=== PATIENT | female | born 1995 | race Caucasian/White ===

== ENCOUNTER 2018-12-20 02:58 | Emergency (ER) | payer OTHER ==
[~2018-12-20] VITALS: Ht 154.9 cm; Wt 81.7 kg
== END 2018-12-20 06:27 | disposition home or self-care (01) ==
LOC: ER 02:58
DX: O90.89 Other complications of the puerperium, not elsewhere classified (principal); M79.662 Pain in left lower leg
CPT/HCPCS: 85379; 93971; 99284-25

== ENCOUNTER → 2020-11-12 | Outpatient (CLI) | payer OTHER | END | disposition home or self-care (01) | LOC: LAB SHORT 13:00 | DX: J20.9 Acute bronchitis, unspecified (principal) | CPT/HCPCS: 87081 ==